=== PATIENT | male | born 1950 | race Caucasian/White ===

== ENCOUNTER 2022-12-11 10:54 | Day surgery (SDC) | payer MEDICARE, OTHER ==
[~2022-12-11] VITALS: Ht 170.2 cm; Wt 81.8 kg
[~2022-12-11 10:54] MED LIST: APIX5TAB PO; ASPI-1444 PO; ATOR40TA28 PO; CARV6 PO; CYAN100T45 PO; DAPA5TAB PO; DIGO125T84 PO; ERGO500093 PO; FOLI-130 PO; FURO80 PO; LOSA-382 PO; METF-1211 PO; POTA-206 PO; THIA100T80 PO
[2022-12-11] MEDS ORDERED: SODIUM CHLORIDE 0.9% 1,000 ML IV ONE (11:00)
[2022-12-11] MEDS ORDERED: SODIUM CHLORIDE 0.9% 1,000 ML ONE (11:12)
[2022-12-11 12:15] LABS: BAND NEUTROPHILS % (MANUAL) 0 % (0-5)
[2022-12-11 12:22] LABS: HEMATOCRIT 36.4 % (41-53); HEMOGLOBIN 12.2 g/dL (13.5-17.5); MEAN CORPUSCULAR HEMOGLOBIN 32.4 pg (26.0-34.0); MEAN CORPUSCULAR HGB CONC 33.5 G/dL (31.0-37.0); MEAN CORPUSCULAR VOLUME 97 fL (80-100); PLATELET COUNT (AUTO) 187 K/uL (150-450); RED BLOOD CELL COUNT(AUTO) 3.76 MIL/uL (4.50-5.90); RED CELL DISTRIBUTION WIDTH 16.2 % (11.5-14.5)
[2022-12-11 12:26] LABS: ANION GAP 6 mmol/L (8-16); CALCIUM, TOTAL 9.5 mg/dL (8.8-10.5); CARBON DIOXIDE 30 mmol/L (22-29); CHLORIDE 107 mmol/L (98-107); GLOMERULAR FILTR. RATE CALC > 60 mL/min (>60); GLUCOSE,RANDOM 130 mg/dL (70-110); POTASSIUM 4.5 mmol/L (3.5-5.1); SODIUM SERUM 143 mmol/L (136-145)
[2022-12-11 12:31] LABS: INR 1.2 (0.9-1.1); PROTHROMBIN TIME 12.4 SEC (9.4-11.6)
[2022-12-11 12:32] LABS: ALANINE AMINOTRANSFERASE 18 U/L (12-78); ALBUMIN 3.9 g/dL (3.4-5.0); ALKALINE PHOSPHATASE 138 U/L (46-116); ASPARTATE AMINOTRANSFERASE 22 U/L (15-37); BILIRUBIN,TOTAL 0.8 mg/dL (0.1-1.0); TOTAL PROTEIN, SERUM 7.5 g/dL (6.4-8.2)
[2022-12-11 12:48] LABS: LYMPHOCYTES % (MANUAL) 32 % (22-44); SEGMENTED NEUTROPHILS % 68 % (40-70)
[2022-12-11] MEDS ORDERED: SODIUM BICARBONATE 50 MEQ/50 ML VIAL ONE (12:49)
[2022-12-11] MEDS ORDERED: LIDOCAINE/PF 1% 30 ML VIAL ONE (12:49)
[2022-12-11] MEDS ORDERED: DiphenhydrAMINE HCL 50 MG/ML VIAL ONE (12:58)
[2022-12-11] MEDS ORDERED: IOHEXOL 300 MG/ML 50 ML VIAL ONE ×2 (13:35→15:45)
[2022-12-11] MEDS ORDERED: FentaNYL CITRATE PF 100 MCG/2 ML VIAL ONE ×2 (14:33→15:46)
[2022-12-11] MEDS ORDERED: MIDAZOLAM HCL 2 MG/2 ML VIAL ONE ×3 (14:33→15:46)
[2022-12-11 15:00] VITALS: BP 128/64; PULSE 52
[2022-12-11] MEDS ORDERED: FentaNYL CITRATE PF 100 MCG/2 ML VIAL IVP ONE ×3 (15:15→16:00)
[2022-12-11] MEDS ORDERED: MIDAZOLAM HCL 2 MG/2 ML VIAL IVP ONE ×3 (15:15→16:00)
[2022-12-11] MEDS ORDERED: SODIUM CHLORIDE 0.9% 500 ML IV ONE (15:15)
[2022-12-11] MEDS ORDERED: LIDOCAINE 1% 30 ML/SOD BICARB 8.4% 4 ML SQ ONE (15:15)
[2022-12-11] MEDS ORDERED: IOHEXOL 300 MG/ML 50 ML VIAL IARTER ONE (15:45)
[2022-12-11 16:11] VITALS: BP 113/70; PULSE 69
[2022-12-11 17:06] LABS: GLUCOMETER DEV NAME(LOC) SDS.
[2022-12-11] MEDS ORDERED: HYDROCODONE/ACETAMINOPHEN 5-325 MG TABLET ONE (17:23)
[2022-12-11] MEDS ORDERED: HYDROCODONE/ACETAMINOPHEN 5-325 MG TABLET PO ONE (17:30)
== END 2022-12-11 18:41 | disposition home or self-care (01) ==
LOC: SDS 10:54
PROVIDERS: ATTEND Internal Medicine Clinical Cardiac Electrophysiology
DX: I50.9 Heart failure, unspecified (principal); I44.7 Left bundle-branch block, unspecified; I25.10 Atherosclerotic heart disease of native coronary artery without angina pectoris; E11.9 Type 2 diabetes mellitus without complications; Z79.82 Long term (current) use of aspirin; Z79.899 Other long term (current) drug therapy; Z86.73 Personal history of transient ischemic attack (TIA), and cerebral infarction without residual deficits; Z98.890 Other specified postprocedural states; I48.91 Unspecified atrial fibrillation; I47.29 Other ventricular tachycardia
CPT/HCPCS: 33249; 80053; 82962; 85007; 85027; 85610; 85730; 36415; 99152; 99153; 93005 ×2; 93460; 33225; 71045; C1899; J0690; J3010; J3490 ×2; J2250; J7030; Q9967; C1900; 36005; 76000; J1200